=== PATIENT | female | born 1980 | race Caucasian/White ===

== ENCOUNTER 2017-12-04 12:22 | Inpatient (IN) | payer OTHER ==
[~2017-12-04] VITALS: Ht 162.6 cm; Wt 97.7 kg
[2017-12-04] MEDS ORDERED: OXYTOCIN 30U/ 0.9% NaCL 500ML 500 ML IV ONE (12:26)
[2017-12-04] MEDS ORDERED: TERBUTALINE 1 MG/ML, 1ML IVPush PRN (12:30)
[2017-12-04] MEDS ORDERED: CALCIUM CARBONATE 500 MG TAB.CHEW PO PRN (12:30)
[2017-12-04] MEDS ORDERED: FENTANYL PF 100 MCG/2ML IVPush PRN (12:30)
[2017-12-04] MEDS ORDERED: SODIUM CHLORIDE FLUSH 10ML SYR IVF PRN (12:30)
[2017-12-04] MEDS ORDERED: SODIUM CITRATE/CITRIC ACID 30 ML UDC PO PRN (12:30)
[2017-12-04] MEDS ORDERED: ONDANSETRON 2MG/ML, 2ML IVPush PRN (12:30)
[2017-12-04] MEDS ORDERED: METOCLOPRAMIDE 5 MG/ML, 2ML IVPush PRN (12:30)
[2017-12-04] MEDS ORDERED: FENTANYL PF 100 MCG/2ML IV PRN (12:30)
[2017-12-04 12:53] VITALS: BP 125/72
[2017-12-04] MEDS ORDERED: PLEASE ENTER HEIGHT AND WEIGHT MC SCH (13:00)
[2017-12-04 13:04] LABS: BASOPHILS # (AUTO) 0.02 x10^3/uL (0-0.1); BASOPHILS % (AUTO) 0 % (0-1); EOSINOPHILS # (AUTO) 0.01 x10^3/uL (0-0.4); EOSINOPHILS % (AUTO) 0 % (1-7); LYMPHOCYTES # (AUTO) 1.28 x10^3/uL (1-3.4); LYMPHOCYTES % (AUTO) 17 % (22-44); MD NO; MEAN CORPUSCULAR HEMOGLOBIN 31.6 pg (27.0-34.8); MEAN CORPUSCULAR HGB CONC 34.7 g/dL (32.4-35.8); MEAN CORPUSCULAR VOLUME 91.1 fL (80-100); MEAN PLATELET VOLUME 7.1 fL (7.4-10.4); MONOCYTES # (AUTO) 0.51 x10^3/uL (0.2-0.8); MONOCYTES % (AUTO) 7 % (2-9); NEUTROPHILS # (AUTO) 5.72 x10^3/uL (1.8-6.8); NEUTROPHILS % (AUTO) 76 % (42-75); PLATELET COUNT 254 x10^3/uL (130-400); RED BLOOD COUNT 4.56 x10^6/uL (3.82-5.3); RED CELL DISTRIBUTION WIDTH 14.7 % (9.6-15.2)
[2017-12-04 13:16] LABS: ALANINE AMINOTRANSFERASE 15 U/L (12-78); ANION GAP 11 mmol/L (5-15); BILIRUBIN, DIRECT 0.1 mg/dL (0.1-0.2); CALCIUM 8.4 mg/dL (8.5-10.1); CHLORIDE 106 mmol/L (98-107); CREATININE 0.69 mg/dL (0.55-1.02)
[2017-12-04] MEDS: LACTATED RINGERS 1,000 ML IV SCH ×2 (13:16→18:50)
[2017-12-04 13:19] LABS: ALKALINE PHOSPHATASE 312 U/L (45-117); BILIRUBIN,TOTAL 0.4 mg/dL (0.2-1.0); TOTAL PROTEIN 6.6 g/dL (6.4-8.2)
[2017-12-04 13:19] LABS: MICROSCOPIC INDICATED
[2017-12-04 13:22] LABS: CREATININE,URINE RANDOM 64.1 mg/dL
[2017-12-04] MEDS ORDERED: OXYTOCIN 30U/ 0.9% NaCL 500ML 500 ML ONE ×2 (13:30→22:44)
[2017-12-04] MEDS ORDERED: MISOPROSTOL 200 MCG TABLET ONE ×2 (13:30→23:19)
[2017-12-04] MEDS ORDERED: NEWBORN KIT ONE (13:30)
[2017-12-04] MEDS ORDERED: LIDOCAINE/PF 1%, 30ML ONE (13:30)
[2017-12-04] MEDS ORDERED: OXYTOCIN 30U/ 0.9% NaCL 500ML 500 ML IV PRN (14:04)
[2017-12-04] MEDS ORDERED: LACTATED RINGERS 1,000 ML IV SCH ×2 (19:02→20:01)
[2017-12-04] MEDS ORDERED: FENTANYL/BUPIV./NS/PF 250 ML EPIDCONT SCH ×2 (19:02→20:01)
[2017-12-04] MEDS ORDERED: LACTATED RINGERS 1,000 ML IVBOLUS PRN ×2 (19:30→20:30)
[2017-12-04] MEDS ORDERED: FENTANYL/BUPIV./NS/PF 250 ML EPIDCONT ONE (19:36)
[2017-12-04] MEDS ORDERED: BUPIVACAINE 0.25% ONE (19:36)
[2017-12-04] MEDS ORDERED: EPHEDRINE 50 MG/ML, 1ML IVPush PRN (20:30)
[2017-12-04] MEDS ORDERED: ACETAMINOPHEN 325 MG TABLET PO PRN (21:00)
[2017-12-04] MEDS ORDERED: METHYLERGONOVINE 0.2 MG/ML IM PRN (21:00)
[2017-12-04] MEDS ORDERED: METOCLOPRAMIDE 5 MG/ML, 2ML IV PRN (21:00)
[2017-12-04] MEDS ORDERED: BISACODYL 10 MG SUPP PR PRN (21:00)
[2017-12-04] MEDS ORDERED: ONDANSETRON 2MG/ML, 2ML IV PRN (21:00)
[2017-12-04] MEDS ORDERED: OXYcodone/APAP 5/325MG TABLET PO PRN ×2 (21:00)
[2017-12-04] MEDS ORDERED: MISOPROSTOL 200 MCG TABLET PR PRN (21:00)
[2017-12-04] MEDS ORDERED: DOCUSATE 100 MG CAPSULE PO PRN (21:00)
[2017-12-04] MEDS ORDERED: IBUPROFEN 600 MG TABLET PO PRN (21:00)
[2017-12-04] MEDS ORDERED: GLYCERIN ADULT SUPP PR PRN (21:00)
[2017-12-04] MEDS ORDERED: CARBOPROST TROMETHAMINE 250 MCG/ML, 1ML IM PRN (21:00)
[2017-12-04] MEDS ORDERED: ACETAMINOPHEN 325 MG TABLET ONE (22:36)
[2017-12-04] MEDS: ACETAMINOPHEN 325 MG TABLET PO PRN (22:38)
[2017-12-04] MEDS: OXYTOCIN 30U/ 0.9% NaCL 500ML 500 ML IV SCH (23:02)
[2017-12-05 00:30] VITALS: BP 119/73
[2017-12-05 04:00] VITALS: BP 113/73
[2017-12-05] MEDS: LACTATED RINGERS 1,000 ML IV SCH ×2 (04:26→12:26)
[2017-12-05 06:07] LABS: BASOPHILS # (AUTO) 0.05 x10^3/uL (0-0.1); BASOPHILS % (AUTO) 0 % (0-1); EOSINOPHILS # (AUTO) 0.01 x10^3/uL (0-0.4); EOSINOPHILS % (AUTO) 0 % (1-7); LYMPHOCYTES # (AUTO) 1.32 x10^3/uL (1-3.4); LYMPHOCYTES % (AUTO) 10 % (22-44); MD NO; MEAN CORPUSCULAR HEMOGLOBIN 31.7 pg (27.0-34.8); MEAN CORPUSCULAR HGB CONC 34.4 g/dL (32.4-35.8); MEAN CORPUSCULAR VOLUME 92.2 fL (80-100); MEAN PLATELET VOLUME 7.1 fL (7.4-10.4); MONOCYTES # (AUTO) 0.86 x10^3/uL (0.2-0.8); MONOCYTES % (AUTO) 7 % (2-9); NEUTROPHILS # (AUTO) 10.59 x10^3/uL (1.8-6.8); NEUTROPHILS % (AUTO) 83 % (42-75); PLATELET COUNT 208 x10^3/uL (130-400); RED BLOOD COUNT 4.14 x10^6/uL (3.82-5.3); RED CELL DISTRIBUTION WIDTH 14.9 % (9.6-15.2)
[2017-12-05] MEDS: OXYTOCIN 30U/ 0.9% NaCL 500ML 500 ML IV SCH ×2 (06:41→16:41)
[2017-12-05 08:00] VITALS: BP 117/73
[2017-12-05] MEDS: ACETAMINOPHEN 325 MG TABLET PO PRN ×3 (08:00→18:15)
[2017-12-05] MEDS ORDERED: PRENATAL VIT/IRON/FA 1 EACH TABLET PO SCH (09:00)
[2017-12-05 12:00] VITALS: BP 116/75
[2017-12-05 19:35] VITALS: BP 120/73
== END 2017-12-05 23:31 | disposition home or self-care (01) | DRG 775 ==
LOC: LDOP 12:22 → LDIP 13:16 → 2NW 12-05 00:26
PROVIDERS: ADMIT Obstetrics & Gynecology; ATTEND Obstetrics & Gynecology
PROC: 10E0XZZ Delivery of Products of Conception, External Approach (ICD-10-PCS; principal; 2017-12-04)
PROC: 3E0R3BZ Introduction of Anesthetic Agent into Spinal Canal, Percutaneous Approach (ICD-10-PCS; 2017-12-04)
PROC: 00HU33Z Insertion of Infusion Device into Spinal Canal, Percutaneous Approach (ICD-10-PCS; 2017-12-04)
PROC: 0HQ9XZZ Repair Perineum Skin, External Approach (ICD-10-PCS; 2017-12-04)
PROC: 10907ZC Drainage of Amniotic Fluid, Therapeutic from Products of Conception, Via Natural or Artificial Opening (ICD-10-PCS; 2017-12-04)
PROC: 3E033VJ Introduction of Other Hormone into Peripheral Vein, Percutaneous Approach (ICD-10-PCS; 2017-12-04)
DX: O13.4 Gestational [pregnancy-induced] hypertension without significant proteinuria, complicating childbirth (principal); O99.354 Diseases of the nervous system complicating childbirth; Z37.0 Single live birth; Z3A.39 39 weeks gestation of pregnancy; G43.909 Migraine, unspecified, not intractable, without status migrainosus; O70.0 First degree perineal laceration during delivery
CPT/HCPCS: 36415; 80053; 81001; 82248; 82570; 84156; 84550; 85025; 86850; 86900; J2590; J7120